=== PATIENT | male | born 2000 | race Caucasian/White ===

== ENCOUNTER 2021-06-14 22:07 | Emergency (ER) | payer MEDICAID ==
[~2021-06-14] VITALS: Ht 185.4 cm; Wt 85.5 kg
[2021-06-14 23:38] VITALS: BP 120/77
[2021-06-14] MEDS ORDERED: CEPH-585 PO (23:56)
[2021-06-14] MEDS ORDERED: HYDR-3965 PO (23:58)
[2021-06-15] MEDS ORDERED: cephalexin 500mg capsule PO ONE
--- NOTE | 2021-06-15 00:10 | NUR ---
Patient left with his brother via wheelchair. Signed AMA paperwork, advised to go to [facility] and brother states they will go. Rx given to brother to fill.
== END 2021-06-15 00:14 | disposition left against medical advice (07) ==
LOC: ER 22:08
DX: S01.81XA Laceration without foreign body of other part of head, initial encounter (principal); S06.5X9A Traumatic subdural hemorrhage with loss of consciousness of unspecified duration, initial encounter; M25.511 Pain in right shoulder; M25.561 Pain in right knee; Z88.0 Allergy status to penicillin; Z79.2 Long term (current) use of antibiotics; V86.96XA Unspecified occupant of dirt bike or motor/cross bike injured in nontraffic accident, initial encounter; Y93.89 Activity, other specified; Y92.89 Other specified places as the place of occurrence of the external cause; Y99.8 Other external cause status
CPT/HCPCS: 12014; 70450; 70486; 73030; 99285

== ENCOUNTER 2024-06-16 23:23 | Emergency (ER) | payer MEDICAID ==
[~2024-06-16] VITALS: Ht 188 cm; Wt 88.6 kg
[2024-06-17 01:56] VITALS: BP 147/85; PULSE 87; RESP 16; TEMP 98.3; O2SAT 98
== END 2024-06-17 01:59 | disposition home or self-care (01) ==
LOC: ER 23:23
DX: F10.129 Alcohol abuse with intoxication, unspecified (principal); Z88.0 Allergy status to penicillin; V89.0XXA Person injured in unspecified motor-vehicle accident, nontraffic, initial encounter; Y93.89 Activity, other specified; Y92.89 Other specified places as the place of occurrence of the external cause; Y99.8 Other external cause status; Y90.9 Presence of alcohol in blood, level not specified
CPT/HCPCS: 99283